=== PATIENT | male | born 1990 | race African-American/Black ===

== ENCOUNTER 2023-01-04 23:54 | Inpatient (IN) | payer OTHER ==
[~2023-01-04] VITALS: Ht 193 cm; Wt 122.5 kg
[2023-01-05 00:03] VITALS: BP_SYST 129
[2023-01-05] MEDS ORDERED: KETOROLAC TROMETHAMINE 60 MG/2 ML VIAL IM ONE (00:45)
--- NOTE | 2023-01-05 00:51 | NUR ---
Dr. Ortiz with patient at bedside for MSE.
--- NOTE | 2023-01-05 01:01 | NUR ---
Pt BIBA from [facility] with c/o of lower back pain, 05/23. Pt with history of 3 slipped disc and potientially an abscess of spine. Pt with pain the whole upper right side of body and back. Safety precautions in place and connected to monitor.
[2023-01-05] MEDS ORDERED: iohexoL 350 mgI/mL, 100 ML INFUS..BTL IV ONE (01:15)
[2023-01-05] MEDS ORDERED: MORPHINE 4 MG INJ. 4 MG/ML VIAL IVP ONE (01:15)
[2023-01-05] MEDS ORDERED: MORPHINE 4 MG INJ. 4 MG/ML VIAL IM ONE (02:00)
[2023-01-05 02:22] LABS: BASOPHILS % (AUTO) 0.6 % (0.0-2.0); EOSINOPHILS % (AUTO) 0.5 % (0.0-4.0); HEMATOCRIT 43.2 % (36-54); HEMOGLOBIN 14.3 g/dL (14.0-18.0); LYMPHOCYTES # (AUTO) 2.3 K/uL (1.0-5.5); MEAN CORPUSCULAR HEMOGLOBIN 31 pg (27-31); MEAN CORPUSCULAR HGB CONC 33 % (32-36); MEAN CORPUSCULAR VOLUME 95 fL (79.0-98.0); MONOCYTES # (AUTO) 0.3 K/uL (0.0-1.0); MONOCYTES % (AUTO) 5.6 % (1.7-9.3); NEUTROPHILS # (AUTO) 3.2 K/uL (1.8-7.7); NEUTROPHILS % (AUTO) 54.3 % (40.0-70.0); PLATELET COUNT (AUTO) 267 K/uL (130-430); RED BLOOD CELL COUNT(AUTO) 4.57 MIL/uL (4.2-6.2); RED CELL DISTRIBUTION WIDTH 14.9 % (9.0-15.0); WHITE BLOOD COUNT (AUTO) 5.9 K/uL (4.8-10.8)
--- NOTE | 2023-01-05 02:22 | NUR ---
Radiology called to inform pt is ready for CT.
--- NOTE | 2023-01-05 02:28 | NUR ---
Pt to CT via angela accompanied by
[2023-01-05] MEDS ORDERED: traZODone HCL 50 MG TABLET (DESYREL) PO ONE (02:30)
[2023-01-05 02:34] LABS: CALCIUM 7.9 mg/dL (8.4-11.0); CREATININE 0.87 mg/dL (0.55-1.30)
[2023-01-05 02:39] LABS: ALBUMIN 3.8 g/dL (3.4-4.8); TOTAL BILIRUBIN 1.9 mg/dL (0.0-1.0)
--- NOTE | 2023-01-05 02:39 | NUR ---
Pt back from CT via angela accompanied by
[2023-01-05] MEDS ORDERED: NACL 0.9% 1,000 ML IV ONE (03:45)
--- NOTE | 2023-01-05 05:22 | NUR ---
Pt resting in bed eyes closed. Even and unlabored resp noted, NAD. Safety precautions in place and connected to monitor.
--- NOTE | 2023-01-05 07:06 | NUR ---
RECEIVED REPORT FROM [facility] AND WILL ASSUME CARE
--- NOTE | 2023-01-05 07:07 | NUR ---
Report given to SHANTEL Cameron to assume all care.
--- NOTE | 2023-01-05 07:15 | NUR ---
PT SLEEPING QUIETLY, NO CHANGES
--- NOTE | 2023-01-05 08:30 | NUR ---
SLEEPING QUIETLY, NO CHANGES
--- NOTE | 2023-01-05 08:57 | NUR ---
PT AWOKE ASKING FOR WATER, URINAL AND PAIN MEDICATION. PT GIVEN WATER AND URINAL. DR FINLEY AWARE OF PT ASKING FOR PAIN MEDICATION, NO NEW ORDERS GIVEN.
[2023-01-05 08:58] LABS: ALCOHOL, BLOOD 186 mg/dL (<10)
[2023-01-05 09:09] LABS: C-REACTIVE PROTEIN QUANT < 0.2 mg/dL (0-0.5)
--- NOTE | 2023-01-05 09:11 | NUR ---
DR FINLEY TO BEDSIDE FOR RE-EVALUATION
--- NOTE | 2023-01-05 09:23 | NUR ---
TELE NEURO REQUESTED, ORDERED BY DR. FINLEY
[2023-01-05 09:33] LABS: ACETONE, SERUM NEGATIVE (NEGATIVE)
[2023-01-05 09:34] LABS: CKMB RELATIVE INDEX 0.3 (0.0-2.9); CREATINE KINASE MB 0.9 ng/mL (0-3.6)
--- NOTE | 2023-01-05 09:48 | NUR ---
PT DOING TELE NEURO AT THIS TIME.
--- NOTE | 2023-01-05 09:54 | NUR ---
NOTIFIED ED ADMITTING, MARGARITO, REGARDING DR. FINLEY'S REQUEST FOR ADMISSION/TRANSFER. PER DR. FINLEY, PT IS STABLE FOR TRANSFER. WILL CONTACT LIFT DRIVER REGARDING THIS MATTER. PER FACESHEET[facility]
--- NOTE | 2023-01-05 10:29 | NUR ---
PT RESTING QUIETLY, STATES HE IS UNABLE TO USE RIGHT SIDE OF BODY. DR FINLEY CALLED TO BEDSIDE FOR RE-EVALUATION
[2023-01-05] MEDS ORDERED: HYDROcodone/ACETAMIN 10-325 MG TAB PO ONE (10:45)
--- NOTE | 2023-01-05 11:10 | NUR ---
CONSENT FOR MRI DONE AND TECH HERE TO TAKE PT.
--- NOTE | 2023-01-05 11:47 | NUR ---
RETURNED FROM MRI AND PLACED BACK TO BED #2 SAFELY.
[2023-01-05] MEDS ORDERED: NACL 0.9% 2,000 ML IV ONE (12:00)
--- NOTE | 2023-01-05 12:29 | NUR ---
GIVEN LUNCH PER REQUEST
--- NOTE | 2023-01-05 13:12 | NUR ---
calling sales consultant insurance,vahid, regarding update on status. no answer left message #: [phone]
--- NOTE | 2023-01-05 13:37 | NUR ---
Admit bed requested Patient will be admitted to care of . Admitted to MED SURG unit. Diagnosis TIA Inpatient (Yes or No) Y Observation (Yes or No) N Orientation concerns or request close to nursing station (Yes or No) N Covid Status N/A On vent or bipap N Isolation requirements NONE Needs a sitter NO From Home (Yes or if No enter name of facility) YES Requires Dialysis (Yes or No) N Med Rec Completed (Yes of No) YES
--- NOTE | 2023-01-05 13:41 | NUR ---
RECEIVED ADMISSION ORDERS FROM DR WOO, AWAITING BED ASSIGNMENT
[2023-01-05] MEDS ORDERED: FOLIC ACID 1 MG, THIAMINE HCL 100 MG, MAGNESIUM SULFATE 1 GM, MVI 10 ML in NACL 0.9% 1,... IV ONE (13:45)
--- NOTE | 2023-01-05 14:14 | NUR ---
Patient will be admitted to MED SURG unit. Will go to room 103A. Belongings list completed. Complete and up to date summary report printed. SBAR report to be given at bedside with opportunity for questions.
--- NOTE | 2023-01-05 14:17 | NUR ---
CONSULTATION PAGED/CALLED Reason for Consultation: [] TIA Person Who was Notified: [] TEXTED CONSULT TO DR Destini FAULKNER Consulting Physician: [] DR Destini FAULKNER Re Dye Hand Specialty: [] NEURO Ordering Physician: [] DR WOO
[2023-01-05 14:22] VITALS: BP_SYST 155
[2023-01-05 14:47] VITALS: BP_SYST 155
[2023-01-05] MEDS: NACL 0.9% 1,000 ML IV SCH (15:52)
[2023-01-05] MEDS: ACETAMINOPHEN 500 MG TABLET PO PRN ×2 (15:53→22:29)
[2023-01-05] MEDS ORDERED: FOLIC ACID 1 MG, MVI 10 ML in NACL 0.9% 1,000 ML IV ONE (16:15)
[2023-01-05] MEDS ORDERED: THIAMINE HCL 100 MG, MAGNESIUM SULFATE 1 GM in NS 100 ML IV ONE (16:15)
[2023-01-05 18:29] VITALS: BP_SYST 139
[2023-01-05 20:00] VITALS: BP_SYST 155
[2023-01-05] MEDS ORDERED: cloNIDine HCL 0.2 MG TABLET PO PRN (21:45)
--- NOTE | 2023-01-05 22:38 | NUR ---
HIGH ALERT NOTE: Called Dr. Simmons back at [phone] identified within the medical roster to verify physician authenticity for Roberto.
[2023-01-05] MEDS ORDERED: ZOLPIDEM TARTRATE 5 MG TABLET PO ONE (22:45)
[2023-01-06] MEDS: NACL 0.9% 1,000 ML IV SCH ×2 (00:08→09:01)
[2023-01-06 00:15] VITALS: BP_SYST 154
--- NOTE | 2023-01-06 01:50 | NUR ---
Rounds Pt asleep, no s/s distress. Call light within reach. To monitor
--- NOTE | 2023-01-06 06:10 | NUR ---
Closing notes/IV restart Pt alert, awake, no s/s distress. Pt slept comfortably. IV pulled out by accident per pt. Restarted IV on L. hand 22G good blood return. IV resumed at ordered rate. Pt asking for Ativan and states he did not sleep comfortably and anxious.
--- NOTE | 2023-01-06 07:30 | NUR ---
Opening Nurse Notes: Patient laying in bed. A/O x 4, patient speaks Gabonese. Patient breathing even on room air. No pain, mild distress, no SOB. Patient is on a regular diet, Normal Saline is running at 150mL/hr. Patient is asking when he can be discharged, I explained that we were waiting for the doctor to come in an evaluate him. Bed is locked in lowest position. Call light within reach, all needs met, will continue with plan of care.
[2023-01-06 08:10] VITALS: BP_SYST 139
[2023-01-06] MEDS ORDERED: MELOXICAM 7.5 MG TABLET PO SCH (09:00)
[2023-01-06] MEDS: ACETAMINOPHEN 500 MG TABLET PO PRN (09:01)
[2023-01-06 11:04] VITALS: BP_SYST 135
[2023-01-06 11:15] LABS: BARBITURATE, URINE NEGATIVE (NEG <=200); BENZODIAZEPINE, URINE NEGATIVE (NEG <=150); CANNABINOID, URINE NEGATIVE (NEG <=50); COCAINE, URINE NEGATIVE (NEG <=150); METHAMPHETAMINES SCREEN,URINE NEGATIVE (NEG <=500); OPIATE, URINE POSITIVE (NEG <=100); PHENCYCLIDINE SCREEN,URINE NEGATIVE (NEG <=25); URINE AMPHETAMINE NEGATIVE (NEG <=500); URINE METHADONE NEGATIVE (NEG <=200); URINE OXYCODONE SCREEN NEGATIVE (NEG <=100); URINE PROPOXYPHENE SCREEN NEGATIVE (NEG <=300)
[2023-01-06 11:16] LABS: UR TRICYCLIC ANTIDEPRESSANTS NEGATIVE (NEG <=300)
[2023-01-06 12:02] VITALS: BP_SYST 133
--- NOTE | 2023-01-06 12:25 | NUR ---
D/C Patient Patient given D/C instructions. Exit Care provided. Patient verbalized understanding. MD discussed with patient the results and treatment provided. Ambulatory with steady gait for discharge to home. Patient in stable condition, ID band removed. IV catheter removed, intact and dressing applied, no active bleeding. Patient educated on pain management. All belongings sent with patient. Patient walked out doors to wait for his ride in the lobby. Pateint offered an Uber but declined.
== END 2023-01-06 12:25 | disposition home or self-care (01) | DRG 351 ==
LOC: SED 23:54 → SMU 01-05 13:33
PROVIDERS: ADMIT General Practice; ATTEND General Practice
DX: M62.838 Other muscle spasm (principal); E87.20 Acidosis, unspecified; M54.50 Low back pain, unspecified; F17.210 Nicotine dependence, cigarettes, uncomplicated; G89.29 Other chronic pain; R20.2 Paresthesia of skin; Z86.61 Personal history of infections of the central nervous system
CPT/HCPCS: 36415; 70450-TC; 70551; 72125-TC; 72131; 76376; 80053; 80307; 82009; 82550; 82553; 83605; 83735; 85025; 86140; 96361; 96374; 99285; G0482; J2270; J3411; J3475; J3490; J7030; Q9967